=== PATIENT | female | born 1975 | race Caucasian/White ===

== ENCOUNTER 2020-08-27 01:20 | Emergency (ER) | payer OTHER ==
--- NOTE | 2020-08-27 01:36 | EDM.PDOC ---
ED HPI GENERAL MEDICAL PROBLEM - General Chief Complaint: General Stated Complaint: Low blood sugar Time Seen by Provider: 08/27/20 01:30 Source of Information: Reports: Family - History of Present Illness INITIAL COMMENTS - FREE TEXT/NARRATIVE: Anastasiya is a 44 y/o female who is brought to the ER by EMS after she became weak was not answering her family. She is currently traveling across the country from [facility] to [place] and they just stopped tonight at a hotel. She did take her nightly insulin, but her daughter reports that they have not really eaten regular meals with traveling. According to family, she seemed fine today and had not been ill. EMS reported that her blood sugar on scene was 24 and she was groggy and clammy. They gave her 1 amp of D50 and then her sugar was 115. She woke right up after the D50 and was sitting on the edge of the bed in the hotel room and EMS was trying to get her to drink some Leyva Coke, but she would not. She got nauseated and was given Zofran by EMS. She would not wake up enough to eat and so she was transported here. As patient more alert, she reported to staff that she did not take her long acting insulin in the AM like she usually does and she took it tonight and then went to bed after traveling all day. Her daughter did try to give her an Oreo, but she got nauseated. ED ROS GENERAL - Review of Systems Review Of Systems: Unable To Obtain Reason Not Obtained: Patient unable to answer questions, ROS received from daughter ED EXAM, GENERAL - Physical Exam Exam: See Below General Appearance: WD/WN (Adult female, very groggy and shruti not wake up to a nswer questions.) Eye Exam: Bilateral Eye: PERRL Ears: Normal External Exam Head: Atraumatic, Normocephalic Neck: Normal Inspection Respiratory/Chest: No Respiratory Distress, Lungs Clear, Chest Non-Tender Cardiovascular: Regular Rate, Rhythm GI/Abdominal: Normal Bowel Sounds, Soft, Other (Obese) (Female) Exam: Deferred Rectal (Female) Exam: Deferred Extremities: Normal Inspection, Normal Range of Motion, Normal Capillary Refill Neurological: Unresponsive Skin Exam: Warm, Dry, Intact, Normal Color #1 Interpretation EKG Date: 08/27/20 Time: 01:57 Rhythm: NSR Rate (Beats/Min): 86 Nemo: Normal P-Wave: Present QRS: Normal ST-T: Normal QT: Prolonged Comparison: NA - No Prior EKG Course - Vital Signs Text/Narrative:: 0129 The patient was seen by the [facility]. She was very groggy on arrival. Bedside glucose with rechecked and it was 27, D50 1 amp given at this time. Patient did wake up and was more alert, but still groggy. Labs and EKG ordered. D10W 1 liter ordered. 0215 Still nauseated, more so when she sits up. Reglan 10mg IV ordered. 0300 Potassium=3.0, Potassium ER 40mEq po x 1 dose ordered when patient alert enough to take fluids/food. 0345 Able to eat a sandwich and drink some milk. Still slightly nauseated, Zofran ODT 4mg po given. Bedside blood sugar=91. Labs reviewed. Patient up to bathroom to walk. Will send her home with Zofran. She was given written discharge instructions and she left the ER in stable condition. - Orders/Labs/Meds Orders: Active Orders 24 hr Category Date Time Status EKG Documentation Completion [RC] STAT Care 08/27/20 01:43 Active Dextrose 10% in Water 1,000 ml Med 08/27/20 01:45 Active IV ASDIRECTED Ondansetron [Take Home: Ondansetron ODT 4 MG, 2 Tab Med 08/27/20 03:44 Once Pack] 2 packet PO ONETIME ONE Sodium Chloride 0.9% [Saline Flush] Med 08/27/20 01:43 Active 10 ml FLUSH ASDIRECTED PRN Saline Lock Insert [OM.PC] Stat Oth 08/27/20 01:43 Ordered Medication Orders Dextrose/Water (Dextrose 10% In Water) 1,000 mls @ 999 mls/hr IV ASDIRECTED MEL Ondansetron HCl (Take Home: Ondansetron Odt 4 Mg, 2 Tab Pack) 2 packet PO ON ETIME ONE Stop: 08/27/20 03:45 Sodium Chloride (Saline Flush) 10 ml FLUSH ASDIRECTED PRN PRN Reason: Keep Vein Open Labs: Laboratory Tests 08/27/20 08/27/20 08/27/20 Range/Units 01:35 01:55 02:13 WBC 9.4 (4.0-10.0) x10^3/uL RBC 4.56 (4.00-5.50) x10^6/uL Hgb 13.2 (12.0-16.0) g/dL Hct 40.2 (33.0-47.0) % MCV 88.2 (78.0-93.0) fL MCH 28.9 (26.0-32.0) pg MCHC 32.8 (32.0-36.0) g/dL RDW Coeff of Beck 13.9 (10.0-15.0) % Plt Count 236 (130-400) x10^3/uL Neut % (Auto) 70.7 (50.0-80.0) % Lymph % (Auto) 17.1 L (25.0-50.0) % [place] % (Auto) 10.9 (2.0-11.0) % Eos % (Auto) 0.8 (0.0-4.0) % Baso % (Auto) 0.5 (0.2-1.2) % Sodium (136-145) mmol/L Potassium (3.5-5.1) mmol/L Chloride (98-107) mmol/L Carbon Dioxide (21-32) mmol/L Anion Gap (5-15) mmol/L BUN (7-18) mg/dL Creatinine (0.55-1.02) mg/dL Est Cr Clr Drug Dosing Estimated GFR (MDRD) Glucose (74-106) mg/dL POC Glucose 27 L* 145 H (74-106) mg/dL Calcium (8.5-10.1) mg/dL Corrected Calcium (8.5-10.1) mg/dL Magnesium (1.8-2.4) mg/dL Total Bilirubin (0.2-1.0) mg/dL AST (15-37) U/L ALT (14-59) U/L Alkaline Phosphatase (46-116) U/L Troponin I (<=0.056) ng/mL Total Protein (6.4-8.2) g/dL Albumin (3.4-5.0) g/dL Globulin Albumin/Globulin Ratio Urine Color (YELLOW) Urine Appearance (CLEAR) Urine pH (5.0-8.0) Ur Specific Troy Urine Protein (NEGATIVE) mg/dL Urine Glucose (UA) (NEGATIVE) mg/dL Urine Ketones (NEGATIVE) mg/dL Urine Occult Blood (NEGATIVE) Urine Nitrite (NEGATIVE) Urine Bilirubin (NEGATIVE) Urine Urobilinogen (0.2) EU/dL Ur Leukocyte Esterase (NEGATIVE) U Hyaline Cast (Auto) Urine RBC (NOT SEEN) /HPF Urine WBC (NOT SEEN) /HPF Ur Squamous Epith Cells (NEGATIVE) /HPF Urine Bacteria (NEGATIVE) /HPF Urine Mucus (NEGATIVE) /LPF Urine Opiates Screen (NEGATIVE) Ur Buprenorphine Scrn (NEGATIVE) Ur Oxycodone Screen (NEGATIVE) Ur EDDP (Meth Metab) (NEGATIVE) Urine Methadone Screen (NEGATIVE) Ur Barbituates Screen (NEGATIVE) Ur Tricyclics Screen (NEGATIVE) Ur Phencyclidine Scrn (NEGATIVE) Ur Amphetamines Screen (NEGATIVE) U Methamphetamines Scrn (NEGATIVE) Urine MDMA Screen (NEGATIVE) U Benzodiazepines Scrn (NEGATIVE) Urine Cocaine Screen (NEGATIVE) U Marijuana (THC) Screen (NEGATIVE) Ethyl Alcohol (0-3) mg/dL 08/27/20 08/27/20 08/27/20 Range/Units 02:13 03:10 03:10 WBC (4.0-10.0) x10^3/uL RBC (4.00-5.50) x10^6/uL Hgb (12.0-16.0) g/dL Hct (33.0-47.0) % MCV (78.0-93.0) fL MCH (26.0-32.0) pg MCHC (32.0-36.0) g/dL RDW Coeff of Beck (10.0-15.0) % Plt Count (130-400) x10^3/uL Neut % (Auto) (50.0-80.0) % Lymph % (Auto) (25.0-50.0) % [place] % (Auto) (2.0-11.0) % Eos % (Auto) (0.0-4.0) % Baso % (Auto) (0.2-1.2) % Sodium 143 (136-145) mmol/L Potassium 3.0 L (3.5-5.1) mmol/L Chloride 104 (98-107) mmol/L Carbon Dioxide 28 (21-32) mmol/L Anion Gap 14.0 (5-15) mmol/L BUN 17 (7-18) mg/dL Creatinine 1.0 (0.55-1.02) mg/dL Est Cr Clr Drug Dosing TNP Estimated GFR (MDRD) > 60 Glucose 156 H (74-106) mg/dL POC Glucose (74-106) mg/dL Calcium 9.3 (8.5-10.1) mg/dL Corrected Calcium 9.62 (8.5-10.1) mg/dL Magnesium 2.2 (1.8-2.4) mg/dL Total Bilirubin 0.4 (0.2-1.0) mg/dL AST 15 (15-37) U/L ALT 25 (14-59) U/L Alkaline Phosphatase 79 (46-116) U/L Troponin I < 0.017 (<=0.056) ng/mL Total Protein 7.0 (6.4-8.2) g/dL Albumin 3.6 (3.4-5.0) g/dL Globulin 3.4 Albumin/Globulin Ratio 1.06 Urine Color Dark yellow H (YELLOW) Urine Appearance Clear (CLEAR) Urine pH 5.0 (5.0-8.0) Ur Specific Troy 1.025 Urine Protein Trace H (NEGATIVE) mg/dL Urine Glucose (UA) >=1000 H (NEGATIVE) mg/dL Urine Ketones Negative (NEGATIVE) mg/dL Urine Occult Blood Negative (NEGATIVE) Urine Nitrite Negative (NEGATIVE) Urine Bilirubin Negative (NEGATIVE) Urine Urobilinogen 0.2 (0.2) EU/dL Ur Leukocyte Esterase Negative (NEGATIVE) U Hyaline Cast (Auto) Rare Urine RBC 0-5 (NOT SEEN) /HPF Urine WBC 0-5 (NOT SEEN) /HPF Ur Squamous Epith Cells Many H (NEGATIVE) /HPF Urine Bacteria Not seen (NEGATIVE) /HPF Urine Mucus Moderate H (NEGATIVE) /LPF Urine Opiates Screen Negative (NEGATIVE) Ur Buprenorphine Scrn Negative (NEGATIVE) Ur Oxycodone Screen Negative (NEGATIVE) Ur EDDP (Meth Metab) Negative (NEGATIVE) Urine Methadone Screen Negative (NEGATIVE) Ur Barbituates Screen Negative (NEGATIVE) Ur Tricyclics Screen Negative (NEGATIVE) Ur Phencyclidine Scrn Negative (NEGATIVE) Ur Amphetamines Screen Negative (NEGATIVE) U Methamphetamines Scrn Negative (NEGATIVE) Urine MDMA Screen Negative (NEGATIVE) U Benzodiazepines Scrn Negative (NEGATIVE) Urine Cocaine Screen Negative (NEGATIVE) U Marijuana (THC) Screen Negative (NEGATIVE) Ethyl Alcohol 3 (0-3) mg/dL Meds: Medications Generic Name Dose Route Start Last Admin Trade Name Freq PRN Reason Stop Dose Admin Dextrose/Water 1,000 mls @ 999 mls/hr 08/27/20 01:45 Dextrose 10% In Water IV ASDIRECTED MEL Ondansetron HCl 2 packet 08/27/20 03:44 Take Home: Ondansetron Odt 4 Mg, 2 Tab Pack PO 08/27/20 03:45 ONETIME ONE Sodium Chloride 10 ml 08/27/20 01:43 Saline Flush FLUSH ASDIRECTED PRN Keep Vein Open Discontinued Medications Generic Name Dose Route Start Last Admin Trade Name Freq PRN Reason Stop Dose Admin Dextrose/Water Confirm 08/27/20 01:45 Dextrose 50% In Water Administered 08/27/20 01:46 Dose 50 ml .ROUTE .STK-MED ONE Dextrose/Water Confirm 08/27/20 01:54 Dextrose 10% In Water Administered 08/27/20 01:55 Dose 500 mls @ as directed .ROUTE .STK-MED ONE Lactated Ringer's 1,000 mls @ 999 mls/hr 08/27/20 02:23 Ringers, Lactated IV 08/27/20 03:23 ONETIME ONE Metoclopramide HCl 10 mg 08/27/20 01:59 Reglan IVPUSH 08/27/20 02:00 ONETIME ONE Ondansetron HCl 4 mg 08/27/20 03:43 Zofran Odt PO 08/27/20 03:44 ONETIME ONE Potassium Chloride 40 meq 08/27/20 02:58 Klor-Con M20 PO 08/27/20 02:59 ONETIME ONE Departure - Departure Time of Disposition: 03:46 Disposition: Home, Self-Care 01 Condition: Good Clinical Impression: Hypoglycemia Type 2 diabetes mellitus Qualifiers: Diabetes mellitus rn perinatal insulin use: with rn perinatal use Diabetes mellitus complication status: with hypoglycemia Diabetes mellitus complication detail: without coma Qualified Code(s): E11.649 - Type 2 diabetes mellitus with hypoglycemia without coma - Discharge Information Instructions: Diabetes Mellitus and Sick Day Management, Hypoglycemia Forms: ED Department Discharge Additional Instructions: -Zofran ODT 4mg oral every 4 hours as needed for nausea #4 (ER) -Resume meds tomorrow as prescribed. -Check your blood sugar often and make sure you are eating regular meals. -Follow up with your PCP or return to the nearest ER if you are not feeling well. - My Orders Last 24 Hours: My Active Orders 08/27/20 01:43 EKG Documentation Completion [RC] STAT Sodium Chloride 0.9% [Saline Flush] 10 ml FLUSH ASDIRECTED PRN Saline Lock Insert [OM.PC] Stat 08/27/20 01:45 Dextrose 10% in Water 1,000 ml IV ASDIRECTED 08/27/20 03:44 Ondansetron [Take Home: Ondansetron ODT 4 MG, 2 Tab Pack] 2 packet PO ONETIME ONE - Assessment/Plan Last 24 Hours: My Active Orders 08/27/20 01:43 EKG Documentation Completion [RC] STAT Sodium Chloride 0.9% [Saline Flush] 10 ml FLUSH ASDIRECTED PRN Saline Lock Insert [OM.PC] Stat 08/27/20 01:45 Dextrose 10% in Water 1,000 ml IV ASDIRECTED 08/27/20 03:44 Ondansetron [Take Home: Ondansetron ODT 4 MG, 2 Tab Pack] 2 packet PO ONETIME ONE
[2020-08-27] MEDS: 50% Dextrose in Water 50 ML Syringe IV PRN (01:40)
[2020-08-27] MEDS: 50% Dextrose in Water 50 ML Syringe ONE (01:40)
[2020-08-27] MEDS ORDERED: Sodium Chloride 0.9% 10 ML Syringe FLUSH PRN (01:43)
[2020-08-27] MEDS: Dextrose 10% in Water 500 ML IV SCH ×2 (01:45→02:10)
[2020-08-27] MEDS ORDERED: Dextrose 10% in Water 1,000 ML IV SCH (01:45)
[2020-08-27] MEDS ORDERED: Dextrose 10% in Water 500 ML ONE (01:54)
[2020-08-27] MEDS: Metoclopramide 10 MG/2 ML SDV IVPUSH ONE (02:10)
[2020-08-27 02:43] LABS: CHLORIDE,CL 104 mmol/L (98-107); SODIUM,NA 143 mmol/L (136-145)
[2020-08-27] MEDS: Lactated Ringers 1,000 ML IV ONE (03:17)
[2020-08-27 03:30] LABS: BUPRENORPHINE,URINE NEGATIVE (NEGATIVE); MARIJUANA,URINE NEGATIVE (NEGATIVE); METHYLENEDIOXYMETHAMP,UR NEGATIVE (NEGATIVE); PHENCYCLIDINE,URINE NEGATIVE (NEGATIVE)
[2020-08-27] MEDS: Potassium Chloride 20 MEQ Tab.ER PO ONE (03:54)
[2020-08-27] MEDS: Take Home: Ondansetron 4 MG Tab.DIS, 2 Tab Pack PO ONE (03:54)
[2020-08-27] MEDS: Ondansetron 4 MG Tab.DIS PO ONE (03:54)
[2020-08-27] MEDS: Dextrose 5%-0.9% NaCl 1,000 ML IV SCH (04:30)
[2020-08-27 07:04] VITALS: BP 120/68; PULSE 80
== END 2020-08-27 05:35 | disposition home or self-care (01) ==
LOC: VM.ED 01:20
DX: E11.649 Type 2 diabetes mellitus with hypoglycemia without coma (principal); E66.9 Obesity, unspecified; Z79.4 Long term (current) use of insulin
CPT/HCPCS: 36415; 80053; 80305-QW; 80307; 81001; 82962; 83735; 84484; 85025; 93005; 93010; 96374; 96375; 99284; 99285-25; A9270-GY; J2765; J7042; J7120